=== PATIENT | female | born 1965 | race Caucasian/White ===

== ENCOUNTER 2019-01-28 10:53 | Emergency (ER) | payer OTHER ==
--- NOTE | 2019-01-28 11:05 | ED Physician Documentation ---
Upper Respiratory Symptoms - HISTORIAN Historian: patient - HPI Stated Complaint: cough, sinus congestion Chief Complaint: Cough/ Upper Respiratory Additional Information: Patient presents to ED with a 2 day history of cough and sinus congestion. Patient states she has yellow sputum production. Onset: days ago (2) Duration: intermittent episodes Context: denies: recent foreign travel Severity: mild Associated Symptoms: runny nose, sinus pain, sinus drainage, productive cough Worsened by Deep Breath: No Further Comments: no - ROS CONST/EYES: denies: weakness CVS/RESP: denies: chest pain, shortness of breath LYMPH: denies: swollen glands GI/: denies: abdominal pain, nausea NEURO/PSYCH: denies: fainting MS/SKIN: denies: muscle aches - PAST HX Lung Disease: none PE Risk Factors: none Surgeries/Procedures: none Allergies/Adverse Reactions: Allergies Allergy/AdvReac Type Severity Reaction Status Date / Time No Known Allergies Allergy Verified 01/28/19 11:09 Home Medications: Ambulatory Orders Medication Instructions Recorded Omeprazole 1 tab PO DAILY 01/28/19 - SOCIAL HX Smoking History: cigarettes, greater than 1 pack/day Alcohol Use: none Drug Use: none - FAMILY HX Family History: none - VITAL SIGNS Vital Signs: Vital Signs Temp Pulse Resp BP Pulse Ox 98.0 F 75 15 123/68 99 01/28/19 10:54 01/28/19 10:54 01/28/19 10:54 01/28/19 10:54 01/28/19 10:54 - REVIEWED ASSESSMENTS Nursing Assessment Reviewed: Yes Vitals Reviewed: Yes Upper Respiratory Symptoms - EXAM General Appearance: no acute distress, alert EENT: maxillary, rhinorrhea, mucosal edema Neck: supple Respiratory: no resp. distress, breath sounds nml, speaks full sentences Abdomen: non-tender, nml bowel sounds CVS: reg rate & rhythm, heart sounds normal Skin: color nml, no rash, warm,dry Extremities: non-tender Neuro/Psych: oriented x3, mood/affect nml Discharge Clincal Impression: Upper respiratory infection Qualifiers: URI type: unspecified URI Qualified Code(s): J06.9 - Acute upper respiratory infection, unspecified Referrals: Primary Doctor,No [Primary Care Provider] - 2 Days Additional Instructions: 1. Take antibiotic until gone 2. Add daily antihistamine such as Claritin, Zyrtec, etc 3. Follow up with PCP within 1 week 4. Return to ER for new or worsening symptoms Condition: Stable Disposition: 01 HOME, SELF-CARE Decision to Admit: NO Date of Decison to Admit: 01/28/19 Decision Time: 11:17
[2019-01-28 11:09] VITALS: BP 123/68
== END 2019-01-28 11:20 | disposition home or self-care (01) ==
LOC: ED 10:53
DX: J06.9 Acute upper respiratory infection, unspecified (principal)
CPT/HCPCS: 99281; 99282

== ENCOUNTER 2019-04-11 14:16 | Outpatient (CLI) | payer OTHER ==
[2019-04-11 14:38] LABS: BASOPHILS % 0.7 % (0.0-1.5); NEUTROPHILS # 6.9 # k/uL (1.4-7.7)
== END 2019-04-11 14:21 ==
LOC: LAB 14:16
PROVIDERS: ATTEND Family Medicine
DX: D50.9 Iron deficiency anemia, unspecified (principal); R53.83 Other fatigue; R63.4 Abnormal weight loss; E55.9 Vitamin D deficiency, unspecified
CPT/HCPCS: 36415; 80053; 82306; 84443; 85025